=== PATIENT | female | born 1940 | race Caucasian/White ===

== ENCOUNTER 2020-05-06 10:12 | Outpatient (CLI) | payer MEDICARE, SELFPAY ==
--- NOTE | ~2020-05-06 | US_ITS ---
EXAMINATION: US carotid duplex BI DATE: 05/06/2020 11:02 INDICATION: Other specific symptoms/signs involving circulatory respiratory system TECHNIQUE: Grayscale, color Doppler, and pulsed Doppler images of the cervical carotid arteries were obtained. The degree of vessel stenosis is placed in one of the following categories: normal, <50%, 5 0-69%, >=70% but less than near-occlusion, near-occlusion, or total occlusion. Note that percent sten osis relative to normal distal artery lumen diameter is indirectly measured from velocity measurement s as described by Kvng, et al. Radiology 2003; 229:340-346. COMPARISON: None. FINDINGS: RIGHT: The right common carotid artery (CCA) peak systolic velocity (PSV) is 81 cm/s. The right internal car otid artery (ICA) PSV is 63 cm/s. The right ICA end-diastolic velocity (EDV) is 29 cm/s. The right IC A/CCA PSV ratio is 0.8. Grayscale and color Doppler images yield an estimate of <50% diameter reducti on from plaque in the ICA. The external carotid artery (ECA) PSV is 68 cm/s. There is antegrade flow in the right vertebral artery. LEFT: The left CCA PSV is 44 cm/s. The left ICA PSV is 79 cm/s. The left ICA EDV is 34 cm/s. The left ICA/C CA PSV ratio is 1.8. Grayscale and color Doppler images yield an estimate of <50% diameter reduction from plaque in the ICA. The ECA PSV is 46 cm/s. There is antegrade flow in the left vertebral artery. IMPRESSION: 1. <50% stenosis in the right internal carotid artery. 2. <50% stenosis in the left internal carotid artery. Reviewed, dictated and finalized at location B.
== END 2020-05-06 10:13 | disposition home or self-care (01) ==
PROVIDERS: PCP Family Medicine; Referring Provider Internal Medicine Cardiovascular Disease; Visit Provider Family Medicine
DX: R09.89 Other specified symptoms and signs involving the circulatory and respiratory systems (principal); I65.23 Occlusion and stenosis of bilateral carotid arteries
CPT/HCPCS: 93880

== ENCOUNTER → 2020-06-27 10:55 | Outpatient (CLI) | payer MEDICARE, SELFPAY ==
--- NOTE | ~2020-06-27 | US_ITS ---
EXAMINATION: US abdomen limited DATE: 06/27/2020 11:50 INDICATION: Epigastric abdominal pain. Intra-abdominal mass. TECHNIQUE: Multiple grayscale and Doppler ultrasound images of the abdomen were obtained. COMPARISON: None FINDINGS: The visualized portions of the head and body of the pancreas are normal. The liver demonstr ates heterogeneous echogenicity and surface nodularity. The patient's palpable area of concern correl ates with the left hepatic lobe. There are gallstones in the gallbladder, which is normal in size. Ga llbladder wall thickening is noted. The common duct is normal and measures 3 mm. IMPRESSION: 1. Heterogeneous liver, consistent with cirrhosis versus metastatic disease. Abdomen MRI without and with contrast is recommended. 2. Cholelithiasis. Gallbladder wall thickening may be secondary to chronic liver disease, interstitia l edema, or chronic cholecystitis. Reviewed, dictated and finalized at location A. IMPRESSION: 1. Heterogeneous liver, consistent with cirrhosis versus metastatic disease. Ab domen MRI without and with contrast is recommended. 2. Cholelithiasis. Gallbladder wall thickening may be secondary to chronic live r disease, interstitial edema, or chronic cholecystitis.
== END ==
PROVIDERS: PCP Family Medicine; Visit Provider Family Medicine
DX: R19.00 Intra-abdominal and pelvic swelling, mass and lump, unspecified site (principal); K80.20 Calculus of gallbladder without cholecystitis without obstruction; R93.2 Abnormal findings on diagnostic imaging of liver and biliary tract
CPT/HCPCS: 76705

== ENCOUNTER 2020-07-04 09:20 | Outpatient (CLI) | payer MEDICARE, SELFPAY ==
--- NOTE | ~2020-07-04 | MR_ITS ---
EXAMINATION: MR abdomen wo/w con INDICATION: Intra-abdominal and pelvic swelling, abnormal abdominal ultrasound TECHNIQUE: Coronal SSFSE ARC, WATER:coronal LAVA-FLEX, Coronal 2D FIESTA FatSat, Axial SSFSE BH ARC, Axial 3D DualEcho BH, Axial SSFSE-IR, Axial DWI b=500, Axial 2D FIESTA FatSat, pre and dynamic postco ntrast Axial LAVA ARC, postcontrast Coronal In and Opposed phase LAVA FLEX COMPARISON: Ultrasound, 06/27/2020 CONTRAST: Multihance, 12 cc FINDINGS: There are innumerable fluid masses throughout nearly the entire liver. The masses demonstra te varying size and degrees of internal enhancement. No liver segment is spared. Some of the masses d emonstrated targeted toward appearance the enlarged liver displaces the upper abdominal contents to t he left. Stones are present in the nondistended gallbladder. The spleen, pancreas, and adrenal glands are normal. Peripelvic cysts are noted in the kidneys. No definite abdominal lymphadenopathy is iden tified. There are no dilated loops of bowel. There is severe lumbar spondylosis. IMPRESSION: 1. Confluent masses involving all hepatic lobes, consistent with primary liver malignancy (such as ch olangiocarcinoma) or metastatic disease. Given the appearance on comparison ultrasound examination, u ltrasound-guided biopsy is recommended. 2. Cholelithiasis without evidence of cholecystitis. Reviewed, dictated and finalized at location A. [employer] IMPRESSION: 1. Confluent masses involving all hepatic lobes, consistent with primary liver malignancy (such as cholangiocarcinoma) or metastatic disease. Given the appear ance on comparison ultrasound examination, ultrasound-guided biopsy is recommen ded. 2. Cholelithiasis without evidence of cholecystitis.
[2020-07-04 10:03] LABS: Estimated Glomerular Filt Rate > 60
== END 2020-07-04 09:21 ==
PROVIDERS: PCP Family Medicine; Visit Provider Family Medicine
DX: K76.89 Other specified diseases of liver (principal); K80.20 Calculus of gallbladder without cholecystitis without obstruction
CPT/HCPCS: 74183; A9577

== ENCOUNTER 2020-07-09 01:45 | Outpatient (CLI) | payer MEDICARE, SELFPAY ==
[2020-07-09 18:04] LABS: SARS-CoV-2 RNA PCR Negative
== END 2020-07-09 01:46 | disposition home or self-care (01) ==
LOC: ANHCOVIDDT 01:45
PROVIDERS: PCP Family Medicine; Visit Provider Family Medicine
DX: Z01.812 Encounter for preprocedural laboratory examination (principal); Z20.828 Contact with and (suspected) exposure to other viral communicable diseases
CPT/HCPCS: 87635; C9803; U0003

== ENCOUNTER 2020-07-13 07:55 | Outpatient (CLI) | payer MEDICARE, SELFPAY ==
[2020-07-11 14:14] VITALS: BMI 24.0
[2020-07-13] VITALS (11 sets, daily range): BP systolic 117–142; BP diastolic 66–82; PULSE 97–109; RESP 17–24; O2SAT 86–96
--- NOTE | ~2020-07-13 | US_ITS ---
EXAMINATION: US biopsy liver DATE: 07/13/2020 10:30 INDICATION: Multiple hepatic masses seen on outside MRI. TECHNIQUE: The procedure including the risks and benefits was discussed with the patient. Risks discu ssed included bleeding and infection. The patient understood the risks and agreed to proceed. The sk in overlying the medial segment of the left hepatic lobe was prepped and draped in usual sterile fash ion. Anesthetic was administered with 1% lidocaine subcutaneously. An 18 gauge core biopsy needle w as advanced under continuous ultrasound observation to the large confluent mass of interest. 3 core biopsy specimens were obtained. The needle was removed and the entry site was cleaned and dressed. Post procedure ultrasound demonstrated no hemorrhage. FINDINGS: Ultrasound images demonstrate patchy needle was advanced into the large heterogeneously hyp oechoic region in the medial segment of the left hepatic lobe corresponding to the location of the la rge confluent mass seen on prior MRI. IMPRESSION: 1. Successful Ultrasound-guided biopsy of a large confluent hepatic mass. Reviewed, dictated and finalized at location A. PLECHASE JOCKEY
[2020-07-13 08:29] LABS: Hematocrit 41.9 % (37.0-47.0); Hemoglobin 13.3 g/dL (12.0-15.0); Mean Corpuscular HGB Conc 31.7 g/dl (32-36); Mean Corpuscular Hemoglobin 25.8 pg (26-34); Mean Corpuscular Volume 81.4 fl (80-100); Mean Platelet Volume 10.1 fl (7.4-10.4); Platelet Count Result 360 k/mm3 (150-375); Red Blood Count 5.15 M/mm3 (4.2-5.4); Red Cell Distribution Width 14.6 % (11.5-14.5); White Blood Count 20.3 K/mm3 (4.5-10.0)
[2020-07-13 08:39] LABS: INR 1.1; Prothrombin Time 15.1 Seconds (11.1-14.7)
== END 2020-07-13 14:15 | disposition home or self-care (01) ==
PROVIDERS: Radiology Diagnostic Radiology; PCP Family Medicine; Visit Provider Family Medicine
DX: K76.89 Other specified diseases of liver (principal); C78.7 Secondary malignant neoplasm of liver and intrahepatic bile duct
CPT/HCPCS: 36415; 47000; 76942; 85027; 85610; 88307; 88342

== ENCOUNTER 2020-07-26 10:32 | Observation (INO) | payer MEDICARE, SELFPAY ==
[2020-07-26] VITALS (13 sets, daily range): BP systolic 108–120; BP diastolic 56–77; PULSE 77–110; RESP 13–25; TEMP 36.1–36.6; O2SAT 90–95; BMI 25.0
--- NOTE | ~2020-07-26 | XR_ITS ---
XR chest 2V 07/26/2020 11:42 Indication: Weakness and dyspnea Procedure: AP and lateral views of the chest Comparison: No prior studies for comparison. Findings: Heart size normal. Elevated right diaphragm. Right basilar infiltrates may represent atelec tasis or developing pneumonia. No pleural effusion or pneumothorax. No acute osseous abnormality. Impression: 1: Right basilar infiltrates may represent atelectasis or developing pneumonia. Reviewed, dictated and finalized at location A. SERVICE CLERK Impression: 1: Right basilar infiltrates may represent atelectasis or developing pneumonia.
--- NOTE | 2020-07-26 10:52 | ECG_ITS ---
Measurements Intervals [place] Rate: 114 P: 25 NC: 166 QRS: -38 QRSD: 82 T: 14 QT: 319 QTc: 441 Interpretive Statements SINUS TACHYCARDIA LOW QRS VOLTAGE IN PRECORDIAL LEADS ANTEROSEPTAL INFARCT, AGE INDETERMINATE INFERIOR INFARCT, AGE INDETERMINATE BASELINE ARTIFACT- I, II, AVR ABNORMAL ECG Electronically Signed On 07-26-2020 11:13:20 MUSICAL INSTRUMENT MECHANIC by Dave Lynn D.O.
[2020-07-26 11:22] LABS: Basophils Absolute Auto 0.1 K/mm3 (0.0-0.1); Basophils Percent Auto 0.5 % (0.2-1.2); Eosinophils Absolute Auto 0.1 K/mm3 (0-0.3); Eosinophils Percent Auto 0.3 % (0-4.4); Hemoglobin 13.6 g/dL (12.0-15.0); Immature Granulocyte Absolute 0.19 K/mm3 (0.00-0.031); Immature Granulocyte Percent A 0.9 % (0-0.5); Lymphocytes Absolute Auto 2.13 K/mm3 (0.9-3.2); Lymphocytes Percent Auto 10.4 % (18.3-44.2); Mean Corpuscular HGB Conc 33.2 g/dl (32-36); Mean Corpuscular Hemoglobin 25.7 pg (26-34); Mean Corpuscular Volume 77.4 fl (80-100); Mean Platelet Volume 9.3 fl (7.4-10.4); Monocytes Absolute Auto 1.4 K/mm3 (0.1-0.6); Monocytes Percent Auto 6.8 % (2.6-8.5); Neutrophils Absolute Auto 16.6 K/mm3 (1.3-6.7); Neutrophils Percent Auto 81.1 % (45.5-73.1); Platelet Count Result 330 k/mm3 (150-375); Red Cell Distribution Width 15.4 % (11.5-14.5); White Blood Count 20.5 K/mm3 (4.5-10.0)
[2020-07-26] MEDS: SODIUM CHLORIDE 0.9% IV 1,000 ML 150 ML IV CONT (11:31)
--- NOTE | 2020-07-26 11:32 | PC.NURSE ---
Per [facility], patient is to recieve 400ml bolus before 150ml/hr infusion
[2020-07-26 11:42] LABS: Alanine Aminotransferase 56 U/L (4-35); Albumin Level 3.4 g/dL (3.5-5.1); Alkaline Phosphatase 659 U/L (38-126); Anion Gap 12 mmol/L (8-16); Aspartate Amino Transferase 175 U/L (14-36); Bilirubin,Total 1.4 mg/dL (0.2-1.3); Blood Urea Nitrogen 21 mg/dL (7-17); Calcium 9.3 mg/dL (8.4-10.2); Carbon Dioxide 23 mmol/L (22-30); Chloride 96 mmol/L (98-107); Estimated CRCL calculation 42 ml/min; Estimated Glomerular Filt Rate > 60; Glucose 105 mg/dL (65-105); Potassium 4.6 mmol/L (3.4-5.0); Sodium 131 mmol/L (137-145)
--- NOTE | 2020-07-26 13:58 | ED.GENADULT ---
HPI - General Adult General Chief complaint: Weakness Stated complaint: ?liver mass, unable to eat Time Seen by Provider: 07/26/20 11:10 Source: patient Mode of arrival: ambulatory Limitations: no limitations History of Present Illness HPI narrative: 79-year-old with a history of liver mass presented to the ER this morning with complaints of marked weakness for past few days. She states that she is unable to eat or drink because of pain in the upper abdomen. She states that she was scheduled to get a PET scan this morning, was unable to get it as orders were not sent. Pt states she is extremely weak, unable to walk, Denies any fever or chills Severity: moderate Exacerbating factors: none Associated symptoms: denies other symptoms Related Data Home Medications Medication Instructions Recorded Confirmed lisinopril 5 mg PO DAILY 07/11/20 07/11/20 raloxifene 60 mg PO DAILY 07/11/20 07/11/20 simvastatin 20 mg PO DAILY 07/11/20 07/11/20 Allergies Allergy/AdvReac Type Severity Reaction Status Date / Time No Known Allergies Allergy Verified 07/26/20 10:54 Review of Systems Review of Systems: All systems reviewed & are unremarkable except as noted in HPI and below Constitutional: Constitutional: Reports as per HPI Eyes: Eyes: Reports as per HPI ENT: Reports system reviewed and no additional complaints, except as documented Cardiovascular: Cardiovascular: Reports no additional cardiovascular complaints Respiratory: Respiratory: Reports no additional respiratory complaints Gastrointestinal: Gastrointestinal: Reports as per HPI Musculoskeletal: Musculoskeletal: Reports no additional musculoskeletal complaints Psychiatric: Psychiatric: Reports no additional psychiatric complaints [facility] Family History Family History Other Family history of arthritis Family history of malignant neoplasm Social History Social History Smoking status: Never smoker Alcohol intake: never Gender identity (if verbalized by the patient): Female Exam Narrative: Exam Narrative: GENERAL: , well-nourished, and in no acute distress. HEAD: Normocephalic, atraumatic. EYES: PERRLA and EOMI. . NECK: Supple. CHEST: Clear to auscultation. No respiratory distress. HEART: Regular rate and rhythm. No murmur heard. Normal peripheral pulses. ABDOMEN: Soft, difuse tenderness , nondistended, normal active bowel sounds. EXTREMITIES: Normal range of motion. No edema. SKIN: Warm, dry, no rash. NEURO: No focal deficits. Alert and oriented x3. PSYCH: Normal mood and affect. Course Course Emergency Course: Inform patient about her lab work. I discussed with Dr. Willis about her lab work and x-ray findings. He prefers the patient to be admitted and have Dr. Ramirez consult him on hte floor. Pt does not feel comfortable going home , I discussed with Dr. Ramirez will see the pt in consult and Dr. Bowers agreed to admit. Vital Signs Vital signs: Vital Signs Pulse Rate 110 H 07/26/20 10:48 Respiratory Rate 13 07/26/20 10:48 Blood Pressure 117/77 07/26/20 10:48 Pulse Oximetry 94 07/26/20 10:48 Temperature 36.6 C 07/26/20 10:52 Pulse Rate 106 H 07/26/20 10:53 Respiratory Rate 13 07/26/20 10:48 Blood Pressure 117/77 07/26/20 10:48 Pulse Oximetry 94 07/26/20 10:48 Medical Decision Making Vital Signs Vital Signs: Vital Signs Pulse Rate 110 H 07/26/20 10:48 Respiratory Rate 13 07/26/20 10:48 Blood Pressure 117/77 07/26/20 10:48 Pulse Oximetry 94 07/26/20 10:48 Temperature 36.6 C 07/26/20 10:52 Pulse Rate 106 H 07/26/20 10:53 Respiratory Rate 13 07/26/20 10:48 Blood Pressure 117/77 07/26/20 10:48 Pulse Oximetry 94 07/26/20 10:48 Lab Data Result diagrams: 07/26/20 11:16 07/26/20 11:16 Labs: Lab Results 07/26/20 07/26/20 Range/Units
[2020-07-26 14:40] LABS: Add Urine Microscopic? YES; Appearance Urine Clear (Clear); Bilirubin Urine 1+ (Negative); Blood Urine Negative (Negative); Color Urine Amber (Yellow); Glucose Urine UA Negative (Negative); Ketones Urine Trace mg/dL (Negative); Leukocyte Esterase Ur Negative LEU/UL (Negative); Mucus Urine Rare /lpf; Nitrate Urine Negative (Negative); Protein Urine 1+ mg/dL (Negative); RBC Urine 0-2 /hpf (0-2); Specific Grav Ur 1.029 (1.001-1.035); WBC Urine 0-3 /hpf
[2020-07-26] MEDS: SODIUM CHLORIDE 0.9% IV 1,000 ML 75 ML IV CONT (15:06)
--- NOTE | 2020-07-26 15:17 | ADMGEN ---
This patient, Stephanie Wilson, was admitted to Medical Room 254-01. Patient/family oriented to hospital policies and general routines including ID bracelet, bed and alarms, visiting hours, pain management, procedures, bathroom and other care routines, personal items, smoking policy, room service/diet, and visiting hours. Information on how to activate the Rapid Response Team has been discussed. Patient/Family are encouraged to report perceived risks to care and to ask questions if they do not understand what they are told or what they should do.
[2020-07-26] MEDS: HYDROmorphone HCL INJ (*CRX) 1 MG/ML SYR 0.5 MG IV PUSH ×2 (15:24→19:46)
[2020-07-26] MEDS: ONDANSETRON INJ 4 MG/2 ML VIAL IV PUSH ×2 (15:24→19:42)
--- NOTE | 2020-07-26 20:15 | PM.IMHP ---
H&P: HPI History of Present Illness Date/Time: 07/26/20 20:15 Chief complaint: Metastatic lung ca Narrative: This is a pleasant 79-year-old female who is known to have a history of hypertension, hyperlipidemia, and recently diagnosed liver mass who presented to the hospital today to have a PET scan done. The patient complains of having increased weakness over the past week as well as decreased p.o. intake of food and fluids. She has not noticed any significant weight loss. She tells me that about 1 month ago she noticed that she had a lump that she could feel over her liver. She had an ultrasound done which demonstrated that she had a liver mass at that time. She was told that it appears that she may also have involvement of her lungs now. The patient is undergoing evaluation with Dr. Ramirez who has asked that we admit the patient to the hospital so she can undergo PET scan in the morning. She denies any history of tobacco use although she has exposure to secondhand smoke from her .Tonight on my encounter with the patient she is complaining of nausea and mild right upper quadrant tenderness which she states has become chronic now. She denies any fevers, chills, cough, shortness of breath, chest pain, palpitations, headache, dysuria, hematuria, diarrhea, rectal bleeding, lower extremity swelling, or rashes. the patient verbalizes to me that she is very frustrated and depressed at this time. No other complaints tonight. Review of Systems Review of Systems: All systems reviewed & are unremarkable except as noted in HPI and below PMFSH Past Medical History Medical History (Updated 07/26/20 @ 20:30 by Shahzad Castillo MD) Essential hypertension Hyperlipidemia Surgical History Surgical History (Updated 07/26/20 @ 20:23 by Shahzad Castillo MD) H/O oophorectomy History of lumpectomy of right breast Family History Family History (Updated 07/26/20 @ 15:35 by Olivia Najera RN) Father Acute eosinophilic leukemia Social History Social History Smoking status: Former smoker Additional smoking assessment comments: pt was a social smoker Alcohol intake: never Substance use: never Substance use type: does not use Gender identity (if verbalized by the patient): Female Spiritual care concerns: No Meds Home Medications and Allergies Home Medications Medication Instructions Recorded Confirmed Type lisinopril 5 mg PO DAILY 07/11/20 07/26/20 History simvastatin 20 mg PO HS 07/11/20 07/26/20 History hydrocodone-acetaminophen 1 tablet PO Q6H PRN 07/26/20 07/26/20 History ondansetron 4 mg PO Q6H PRN 07/26/20 07/26/20 History Allergies Allergy/AdvReac Type Severity Reaction Status Date / Time No Known Allergies Allergy Verified 07/26/20 15:18 Vital Signs Vital Signs - 24 hr 07/26/20 10:48 07/26/20 10:52 07/26/20 10:53 Temperature 36.6 C Pulse Rate 110 H 106 H Respiratory Rate 13 Blood Pressure 117/77 Pulse Oximetry 94 07/26/20 11:46 07/26/20 12:01 07/26/20 12:31 Temperature Pulse Rate 105 H 104 H 107 H Respiratory Rate 25 H 21 H 19 Blood Pressure 114/76 117/65 120/66 Pulse Oximetry 92 93 92 07/26/20 12:46 07/26/20 13:31 07/26/20 13:46 Temperature Pulse Rate 105 H 106 H 106 H Respiratory Rate 21 H 20 20 Blood Pressure 116/71 115/69 118/66 Pulse Oximetry 90 07/26/20 14:17 07/26/20 14:48 07/26/20 15:16 Temperature 36.6 C Pulse Rate 77 106 H 108 H Respiratory Rate 19 19 16 Blood Pressure 108/56 L 120/70 115/60 Pulse Oximetry 90 93 95 Exam Const: General: cooperative, alert, awake and ill appearing chronically Nutritional Appearance: well nourished Orientation/consciousness: patient oriented x3 HENMT: Head: normal to inspection General nose exam: Normal external nose present Face and sinus: normal facial exam Mouth: Yes Normal oral and palatal mucosa present and Y
[2020-07-27] MEDS: HYDROmorphone HCL INJ (*CRX) 1 MG/ML SYR 0.5 MG IV PUSH ×2 (02:11→13:18)
[2020-07-27] MEDS: ONDANSETRON INJ 4 MG/2 ML VIAL IV PUSH ×2 (02:12→13:15)
[2020-07-27] MEDS: SODIUM CHLORIDE 0.9% IV 1,000 ML 75 ML IV CONT ×2 (04:58→19:47)
[2020-07-27 05:38] VITALS: BP 107/62; PULSE 98; RESP 16; TEMP 36.2; O2SAT 90
[2020-07-27 05:38] LABS: Basophils Absolute Auto 0.1 K/mm3 (0.0-0.1); Basophils Percent Auto 0.4 % (0.2-1.2); Eosinophils Absolute Auto 0.1 K/mm3 (0-0.3); Eosinophils Percent Auto 0.4 % (0-4.4); Hematocrit 36.9 % (37.0-47.0); Hemoglobin 12.2 g/dL (12.0-15.0); Immature Granulocyte Absolute 0.16 K/mm3 (0.00-0.031); Immature Granulocyte Percent A 0.9 % (0-0.5); Lymphocytes Absolute Auto 2.99 K/mm3 (0.9-3.2); Lymphocytes Percent Auto 16.6 % (18.3-44.2); Mean Corpuscular HGB Conc 33.1 g/dl (32-36); Mean Corpuscular Hemoglobin 25.2 pg (26-34); Mean Corpuscular Volume 76.1 fl (80-100); Mean Platelet Volume 9.4 fl (7.4-10.4); Monocytes Absolute Auto 1.4 K/mm3 (0.1-0.6); Neutrophils Absolute Auto 13.3 K/mm3 (1.3-6.7); Neutrophils Percent Auto 73.7 % (45.5-73.1); Platelet Count Result 341 k/mm3 (150-375); Red Blood Count 4.85 M/mm3 (4.2-5.4); Red Cell Distribution Width 15.6 % (11.5-14.5)
[2020-07-27 06:00] LABS: Alanine Aminotransferase 50 U/L (4-35); Albumin Level 3.2 g/dL (3.5-5.1); Alkaline Phosphatase 561 U/L (38-126); Anion Gap 11 mmol/L (8-16); Aspartate Amino Transferase 160 U/L (14-36); Bilirubin,Total 1.4 mg/dL (0.2-1.3); Blood Urea Nitrogen 22 mg/dL (7-17); Calcium 8.6 mg/dL (8.4-10.2); Carbon Dioxide 21 mmol/L (22-30); Chloride 101 mmol/L (98-107); Estimated CRCL calculation 43 ml/min; Estimated Glomerular Filt Rate > 60; Glucose 86 mg/dL (65-105); Potassium 4.7 mmol/L (3.4-5.0); Sodium 133 mmol/L (137-145)
[2020-07-27] MEDS: lisinopriL 5 MG TABLET PO (09:30)
--- NOTE | 2020-07-27 10:22 | PCPTNOTE ---
Attempted PT evaluation. Pt just returned to bed from shower and requesting therapy after lunch secondary to fatigue. Will attempt again later. Rosa Raymundo, СЕРГЕЙT
[2020-07-27 12:24] VITALS: BMI 25.0
--- NOTE | 2020-07-27 13:43 | PM.IMPN ---
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 She is having RUQ pain felt to be secondary to mass. Dr. Ramirez has been consulted and recommendations are appreciated. Analgesics as needed for pain. Antiemetics. She will need a PET scan as an outpatient. Will provide order. (2) Weakness: Code(s): R53.1 - Weakness Status: Acute Assessment and Plan: [place] to be multifactorial related to malignancy and possible metastatic disease, dehydration, and deconditioning. Appreciate PT and OT evaluation. Check TSH, B12, and folate (3) Dehydration: Code(s): E86.0 - Dehydration Status: Acute Assessment and Plan: Patient reports poor oral intake. Noted to be dry on exam upon presentation. She appears adequately rehydrated at this time. Continue gentle IV fluids as oral intake is still decreased Encourage PO intake of food and liquids. Dietary supplements (4) Leukocytosis: Qualifiers: Leukocytosis type: unspecified Qualified Code(s): D72.829 - Elevated white blood cell count, unspecified Code(s): D72.829 - Elevated white blood cell count, unspecified Status: Chronic Assessment and Plan: Ongoing leukocytosis is likely secondary to primary malignancy. No evidence of acute infection. Patient is afebrile. Monitor CBCd (5) Transaminitis: Code(s): R74.01 - Elevation of levels of liver transaminase levels Status: Chronic Assessment and Plan: Cholestatic transaminitis appears to be secondary to liver cancer. Monitor LFTs closely (6) Hyperlipidemia: Qualifiers: Hyperlipidemia type: unspecified Qualified Code(s): E78.5 - Hyperlipidemia, unspecified Code(s): E78.5 - Hyperlipidemia, unspecified Status: Chronic Assessment and Plan: We will hold simvastatin secondary to elevated liver enzymes. (7) Essential hypertension: Code(s): I10 - Essential (primary) hypertension Status: Chronic Assessment and Plan: Blood pressure evaluated today and is low-normal, last reading was 107/62. Continue lisinopril. Hold if BP becomes low. Subjective Date/time seen: 07/27/20 13:43 Interval history: Date of service: 07/27/2020 Stephanie Wilson is a 79 year old female with a history of HTN and known liver mass being worked up by oncology who is seen in follow up for weakness and dehydration. She reports she is not doing well today. She complains of RUQ pain. She has poor appetite and has not been tolerating much oral intake. She denies nausea, vomiting, abdominal pain, fever, chills, dizziness, or lightheadedness. She feels weak. She got up for a shower today and required assistance. After that, she was too worn out to work with therapy. She does not feel that she can return home at this time as she is feeling so poorly. Review of Systems Review of Systems: All systems reviewed & are unremarkable except as noted in HPI and below Exam Narrative: Exam Narrative: Ms. Wilson is a well-nourished, well-appearing 79-year-old female who is lying supine in bed. She appears comfortable and is in NARD. HR 98, BP 107/62, RR 16, T 97.1?, 92% room air Neuro: awake, alert and oriented x4, speech clear, no focal neuro deficits noted HEENMT: normocephalic, atraumatic, EOMI, sclerae anicteric, moist oral mucosa, tongue midline, nares patent Neck: supple, no lymphadenopathy Respiratory: clear to auscultation bilaterally, nonlabored breathing Cardio: regular rate, regular rhythm with S1-S2 Abdomen: nondistended, normoactive bowel sounds, soft
[2020-07-27 14:00] VITALS: BP 82/50; PULSE 102; RESP 12; TEMP 36.8; O2SAT 92
--- NOTE | 2020-07-27 14:27 | PCOTNOTE ---
OT evaluation attempted, however, patient nauseated and tired and requesting therapy come back another time. Will attempt OT evaluation at later time.
[2020-07-27 15:10] VITALS: BP 94/56; PULSE 94; RESP 12; TEMP 36.3; O2SAT 93
--- NOTE | 2020-07-27 17:36 | PDONCCN ---
[facility] - Date of Consult Date/Time: 07/27/20 17:36 Requesting Physician: Oly Trevino PA-C Primary Care Provider: Dileep Willis MD - Consult Narrative Reason for consult: Metastatic adenocarcinoma Narrative: Stephanie Wilson is a 79 year old female This is a pleasant 79-year-old female who well abdominal MRI done on July 04, 2020 due to abdominal pain and distention that showed confluent of masses involving all a hepatic lobes and ultrasound-guided biopsy was recommended. Patient had ultrasound-guided biopsy of the large liver mass done on July 13 that came back positive for adenocarcinoma likely pulmonary origin. Patient has a history of right-sided breast cancer diagnosed in 1991 status post lumpectomy and radiation therapy. She denies any history of smoking but had secondhand smoking exposure with the for almost 50 years duration. She now came into the hospital with generalized tiredness and fatigue and right upper quadrant abdominal pain. She has been eating poorly and has been losing weight as well. Denies any bone pain and headache. She was started on Dilaudid in the hospital with improvement in abdominal discomfort. She was supposed to have a PET scan done as an outpatient but got into the hospital. She also had appointment with me early this week but unfortunately admitted to the hospital for generalized tiredness and fatigue and failure to thrive. Review of Systems - Review of Systems All systems reviewed & are unremarkable except as noted in [facility] and [facility] Medical History: Medical History (Last Updated 07/26/20 @ 20:23 by Shahzad Castillo MD) Essential hypertension Hyperlipidemia Surgical History: Surgical History (Last Updated 07/26/20 @ 20:23 by Shahzad Castillo MD) H/O oophorectomy History of lumpectomy of right breast Family History: Family History (Last Updated 07/26/20 @ 15:35 by Olivia Najera RN) Father Acute eosinophilic leukemia - Social History Social History: Social History (Last Reviewed 07/26/20 @ 14:02 by William Garcia MD) Gender Identity: Gender identity (if verbalized by the patient): Female Alcohol Use: Alcohol intake: never Substance Use: Substance use: never Substance use type: does not use Others: Spiritual care concerns: No Smoking Status: Smoking status: Former smoker Comments: Additional smoking assessment comments: pt was a social smoker Meds Home Medications Medication Instructions Recorded Confirmed Type lisinopril 5 mg PO DAILY 07/11/20 07/26/20 History simvastatin 20 mg PO HS 07/11/20 07/26/20 History hydrocodone-acetaminophen 1 tablet PO Q6H PRN 07/26/20 07/26/20 History ondansetron 4 mg PO Q6H PRN 07/26/20 07/26/20 History Allergies Allergy/AdvReac Type Severity Reaction Status Date / Time No Known Allergies Allergy Verified 07/26/20 15:18 Results - Labs CBC & Chem 7: 07/27/20 05:29 07/27/20 05:29 Labs: Short CBC 07/27/20 Range/Units 05:29 WBC 18.0 H (4.5-10.0) K/mm3 Hgb 12.2 (12.0-15.0) g/dL Hct 36.9 L (37.0-47.0) % Plt Count 341 (150-375) k/mm3 BMP 07/27/20 05:29 Sodium 133 L Potassium 4.7 Chloride 101 Carbon Dioxide 21 L BUN 22 H Creatinine 0.80 Glucose 86 Calcium 8.6 Liver Function 07/27/20 Range/Units 05:29 Total Bilirubin 1.4 H (0.2-1.3) mg/dL AST 160 H (14-36) U/L ALT 50 H (4-35) U/L Alkaline Phosphatase 561 H (38-126) U/L Albumin 3.2 L (3.5-5.1) g/dL Assessment and Plan - Additional Plan Metastatic adenocarcinoma status post ultrasound-guided liver biopsy done on July 13, 2020. Patient denies any history of smoking but had secondhand smoking exposure from the . She also has a history of right-sided breast cancer status post lumpectomy in 1991. I have reviewed the pathology report that showed adenocarcinoma likely arising from pulmo
[2020-07-27] MEDS: HYDROcodone/acetaminophen (*CRX) 5-325 MG TABLET 1 TAB PO (19:47)
[2020-07-27 20:00] VITALS: BP 106/61; PULSE 95; RESP 22; TEMP 36.8; O2SAT 96
[2020-07-28] MEDS: HYDROcodone/acetaminophen (*CRX) 5-325 MG TABLET 1 TAB PO ×3 (01:40→12:20)
[2020-07-28 04:00] VITALS: BP 100/56; PULSE 90; RESP 20; TEMP 36.5; O2SAT 93
[2020-07-28 05:54] LABS: Hematocrit 36.8 % (37.0-47.0); Mean Corpuscular HGB Conc 32.6 g/dl (32-36); Mean Corpuscular Hemoglobin 25.5 pg (26-34); Mean Corpuscular Volume 78.3 fl (80-100); Mean Platelet Volume 9.9 fl (7.4-10.4); Platelet Count Result 297 k/mm3 (150-375); Red Cell Distribution Width 15.5 % (11.5-14.5)
[2020-07-28 06:09] LABS: Anion Gap 7 mmol/L (8-16); Blood Urea Nitrogen 26 mg/dL (7-17); Calcium 8.7 mg/dL (8.4-10.2); Carbon Dioxide 25 mmol/L (22-30); Chloride 100 mmol/L (98-107); Estimated CRCL calculation 32 ml/min; Estimated Glomerular Filt Rate 48; Glucose 96 mg/dL (65-105); Potassium 4.4 mmol/L (3.4-5.0); Sodium 132 mmol/L (137-145)
[2020-07-28 07:12] LABS: Folic Acid 6.1 ng/mL (2.76->20); Vitamin B12 > 1000.0 pg/mL (239-931)
[2020-07-28 07:46] LABS: Alanine Aminotransferase 52 U/L (4-35); Alkaline Phosphatase 565 U/L (38-126); Aspartate Amino Transferase 181 U/L (14-36); Bilirubin,Total 1.6 mg/dL (0.2-1.3)
[2020-07-28 07:55] LABS: Free T4 Free Thyroxine Reflex 1.69 ng/dL (0.78-2.19)
[2020-07-28] MEDS: lisinopriL 5 MG TABLET PO (08:46)
--- NOTE | 2020-07-28 10:00 | PM.IMPN ---
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 She is having RUQ pain felt to be secondary to mass. Dr. Ramirez has been consulted and recommendations are appreciated. Analgesics as needed for pain. Antiemetics. She will need a PET scan as an outpatient. Will provide order. She will follow up with Dr. Ramirez as an outpatient for possible immunotherapy. Patient declines chemotherapy. Hopeful discharge tomorrow if continued improvement of pain and weakness. (2) Weakness: Code(s): R53.1 - Weakness Status: Acute Assessment and Plan: [place] to be multifactorial related to malignancy and metastatic disease, dehydration, and deconditioning. B12 and folate wnl. Appreciate PT and OT evaluation. Continue IV fluids and PO intake encouragement. Fall precautions (3) Dehydration: Code(s): E86.0 - Dehydration Status: Acute Assessment and Plan: Patient reports poor oral intake. Noted to be dry on exam upon presentation. She appears adequately rehydrated at this time. Continue gentle IV fluids as oral intake is still decreased, but overall improving. Encourage PO intake of food and liquids. Dietary supplements (4) Leukocytosis: Qualifiers: Leukocytosis type: unspecified Qualified Code(s): D72.829 - Elevated white blood cell count, unspecified Code(s): D72.829 - Elevated white blood cell count, unspecified Status: Chronic Assessment and Plan: Ongoing leukocytosis is likely secondary to primary malignancy. No evidence of acute infection. CXR with possible infiltrates although patient has no respiratory symptoms. UA clear. Patient is afebrile. Leukocytosis improving. Monitor CBCd (5) Transaminitis: Code(s): R74.01 - Elevation of levels of liver transaminase levels Status: Chronic Assessment and Plan: Cholestatic transaminitis appears to be secondary to liver cancer. Monitor LFTs closely (6) Hyperlipidemia: Qualifiers: Hyperlipidemia type: unspecified Qualified Code(s): E78.5 - Hyperlipidemia, unspecified Code(s): E78.5 - Hyperlipidemia, unspecified Status: Chronic Assessment and Plan: Simvastatin on hold secondary to elevated liver enzymes. (7) Essential hypertension: Code(s): I10 - Essential (primary) hypertension Status: Chronic Assessment and Plan: Blood pressure evaluated today and is low-normal, last reading was 100/56. Continue low dose lisinopril. Hold if BP becomes low. (8) Subclinical hypothyroidism: Code(s): E03.9 - Hypothyroidism, unspecified Status: Acute Assessment and Plan: TSH slightly elevated at 6. T4 wnl. T3 is pending. Possibly contributing to weakness but dehydration and malignancy seems more likely Repeat reflex TSH in 6 weeks. Subjective Date/time seen: 07/28/20 10:00 Interval history: Date of service: 07/28/2020 Stephanie Wilson is a 79 year old female with a history of HTN and known liver mass being worked up by oncology who is seen in follow up for weakness and dehydration. She reports that she is doing the same today. She continues to endorse significant weakness. She is not eating much and has very poor appetite. She feels that she is not steady to ambulate without assistance. She does not feel that she can safely return home at this time. She is endorsing nausea today but no vomiting. She continues to endorse right upper quadrant pain that is worse with inspiration. She also describes feeling as though fo
[2020-07-28 10:13] LABS: Total Triiodothyronine (T3) 0.58 NG/ML (0.97-1.69)
[2020-07-28] MEDS: SODIUM CHLORIDE 0.9% IV 1,000 ML 75 ML IV CONT (12:22)
[2020-07-28 14:00] VITALS: BP 104/62; PULSE 95; RESP 16; TEMP 36.7; O2SAT 95
[2020-07-28] MEDS: ONDANSETRON INJ 4 MG/2 ML VIAL IV PUSH ×2 (14:03→22:25)
[2020-07-28] MEDS: CALCIUM CARBONATE (TUMS) 500 MG (200 MG ELEMENTAL) PO ×2 (16:26→22:25)
[2020-07-28 22:00] VITALS: BP 100/53; PULSE 100; RESP 16; TEMP 37.1; O2SAT 94
[2020-07-28 23:56] VITALS: BP 105/55; PULSE 98; RESP 16; TEMP 36.7; O2SAT 93
[2020-07-29] MEDS: SODIUM CHLORIDE 0.9% IV 1,000 ML 75 ML IV CONT (02:37)
[2020-07-29 04:04] VITALS: BP 108/62; PULSE 102; RESP 16; TEMP 36.7; O2SAT 94
[2020-07-29] MEDS: KETOROLAC 30 MG/ML VIAL (*BKC) IV PUSH (04:09)
[2020-07-29 05:47] LABS: Hematocrit 36.5 % (37.0-47.0); Hemoglobin 11.9 g/dL (12.0-15.0); Mean Corpuscular HGB Conc 32.6 g/dl (32-36); Mean Corpuscular Hemoglobin 25.4 pg (26-34); Mean Platelet Volume 9.7 fl (7.4-10.4); Platelet Count Result 271 k/mm3 (150-375); Red Blood Count 4.68 M/mm3 (4.2-5.4); Red Cell Distribution Width 15.9 % (11.5-14.5); White Blood Count 16.6 K/mm3 (4.5-10.0)
[2020-07-29 05:53] LABS: Anion Gap 7 mmol/L (8-16); Blood Urea Nitrogen 22 mg/dL (7-17); Calcium 8.7 mg/dL (8.4-10.2); Carbon Dioxide 22 mmol/L (22-30); Chloride 104 mmol/L (98-107); Estimated CRCL calculation 43 ml/min; Estimated Glomerular Filt Rate > 60; Glucose 92 mg/dL (65-105); Potassium 4.5 mmol/L (3.4-5.0); Sodium 133 mmol/L (137-145)
[2020-07-29 08:36] VITALS: BP 107/61
[2020-07-29] MEDS: HYDROcodone/acetaminophen (*CRX) 5-325 MG TABLET 1 TAB PO (08:46)
[2020-07-29] MEDS: CALCIUM CARBONATE (TUMS) 500 MG (200 MG ELEMENTAL) PO (11:46)
--- NOTE | 2020-07-30 09:42 | PM.DS ---
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 She was experiencing RUQ pain felt to be secondary to mass. She was seen in consultation by Dr. Ramirez and will follow Up with him as an outpatient for possible immunotherapy. She has declined chemotherapy. She will need a PET scan as an outpatient and she was provided with this order. Pain was controlled with PO [place] and she was provided with a short course of pain medication upon discharge at the request of Dr. Ramirez. (2) Weakness: Code(s): R53.1 - Weakness Status: Acute Assessment and Plan: [place] to be multifactorial related to malignancy and metastatic disease, dehydration, and deconditioning. B12 and folate wnl. she was seen by PT and OT and no further needs for ongoing therapy were identified. Fall precautions discussed. (3) Dehydration: Code(s): E86.0 - Dehydration Status: Acute Assessment and Plan: Patient reported poor oral intake secondary to nausea. she was rehydrated with IV fluids and volume status improved. Nausea controlled with Zofran which she can continue as an outpatient as needed. Dietary supplements. (4) Leukocytosis: Qualifiers: Leukocytosis type: unspecified Qualified Code(s): D72.829 - Elevated white blood cell count, unspecified Code(s): D72.829 - Elevated white blood cell count, unspecified Status: Chronic Assessment and Plan: Ongoing leukocytosis is likely secondary to primary malignancy. No evidence of acute infection. CXR with possible infiltrates although patient has no respiratory symptoms. UA clear. Patient is afebrile. Monitor CBC as an outpatient. (5) Transaminitis: Code(s): R74.01 - Elevation of levels of liver transaminase levels Status: Chronic Assessment and Plan: Cholestatic transaminitis appears to be secondary to liver cancer. Follow LFTs as an outpatient. Repeat CMP in 1 week. (6) Hyperlipidemia: Qualifiers: Hyperlipidemia type: unspecified Qualified Code(s): E78.5 - Hyperlipidemia, unspecified Code(s): E78.5 - Hyperlipidemia, unspecified Status: Chronic Assessment and Plan: Simvastatin on hold secondary to elevated liver enzymes. Follow up with PCP to determine if/when to resume. (7) Essential hypertension: Code(s): I10 - Essential (primary) hypertension Status: Chronic Assessment and Plan: Blood pressure evaluated daily and was low-normal with few episodes of hypotension. Her lisinopril was held. Recommended monitoring BP at home and recording for PCP review. Hold until follow up. (8) Subclinical hypothyroidism: Code(s): E03.9 - Hypothyroidism, unspecified Status: Acute Assessment and Plan: TSH slightly elevated at 6. T4 wnl. T3 slightly decreased. Repeat reflex TSH in 6 weeks. (9) Dysphagia: Code(s): R13.10 - Dysphagia, unspecified Status: Acute Assessment and Plan: Patient reports intermittent sensation of food stuck in her throat that quickly resolves with swallowing liquids. Has been going on for quite some time. Reports occurs more frequently with dry, hard foods. She has not had an EGD in the past and does not wish to have one in the future. We discussed soft, moist foods, chewing thoroughly, taking frequent sips of water between bites, and eating sitting upright.Aspiration precautions in place. DS: Summary Hospital Course Reason for hospitalization: MINGO mendes
== END 2020-07-29 15:09 | disposition home or self-care (01) ==
LOC: ANHED 14:10 → ANH2MED 14:40
PROVIDERS: Family Medicine; Physician Assistant; Admitting Provider Internal Medicine; Emergency Provider Family Medicine; PCP Family Medicine; Visit Provider Family Medicine
DX: C78.7 Secondary malignant neoplasm of liver and intrahepatic bile duct (principal); R53.1 Weakness; E86.0 Dehydration; D72.829 Elevated white blood cell count, unspecified; R74.01 Elevation of levels of liver transaminase levels; E78.5 Hyperlipidemia, unspecified; I10 Essential (primary) hypertension; R13.10 Dysphagia, unspecified; R10.10 Upper abdominal pain, unspecified; R94.31 Abnormal electrocardiogram [ECG] [EKG]; R11.0 Nausea; R91.8 Other nonspecific abnormal finding of lung field; R63.4 Abnormal weight loss; E03.9 Hypothyroidism, unspecified; Z87.891 Personal history of nicotine dependence; Z85.3 Personal history of malignant neoplasm of breast
CPT/HCPCS: 36415; 71046; 80048; 80053; 81001; 82607; 82746; 84439; 84443; 84480; 85025; 85027; 93005; 96361; 96374; 96375; 96376; 97110; 97116; 97161; 97165; 99285; A9270; G0378; J1170; J1885; J2405; J7030

== ENCOUNTER 2020-07-31 08:54 | Observation (INO) | payer MEDICARE, SELFPAY ==
[2020-07-31] VITALS (31 sets, daily range): BP systolic 101–119; BP diastolic 53–92; PULSE 93–110; RESP 15–25; TEMP 36.2–36.8; O2SAT 92–97; BMI 25.4
--- NOTE | ~2020-07-31 | CT_ITS ---
EXAMINATION: CT abdomen pelvis w con DATE: 07/31/2020 11:05 INDICATION: Diarrhea. Weakness. TECHNIQUE: Computed tomography (CT) of the abdomen and pelvis was performed without intravenous contr ast. Automated exposure control and iterative reconstruction technique were employed. Exam dose: 820 .25 mGy-cm total exam DLP. COMPARISON: 06/27/2020 limited abdominal ultrasound examination FINDINGS: There is mild right pleural effusion. There is right lower lobe and middle lobe basilar ate lectasis. Mild discoid atelectasis or scarring at the left lung base. There is hepatomegaly with innumerable hepatic masses scattered throughout the liver consistent with extensive hepatic metastatic disease. The gallbladder is present. No bile duct dilatation. Normal splenic size. No pancreatic mass lesion, calcification or ductal dilatation. Normal morphology of the adrenal glands. Small nonobstructing lower pole left renal calculus. No apparent ureteral calculus or hydroureteronep hrosis on either side. The urinary bladder, uterus and adnexal areas are unremarkable. Diverticulosis of the colon; no CT evidence of diverticulitis. No bowel obstruction, bowel wall thick ening, pneumatosis or intraperitoneal free air is detected. There is mild ascites. There is extensive calcification of the abdominal aorta but no aneurysm. No intraperitoneal or retrop eritoneal or pelvic mass lesion or lymphadenopathy is noted. Extensive degenerative changes of the thoracic and lumbar spine. No suspicious osteolytic or osteoblastic lesions for metastasis are noted. IMPRESSION: Hepatomegaly with extensive hepatic metastases Small nonobstructing lower pole left renal calculus Mild ascites Diverticulosis of the colon Reviewed, dictated and finalized at [facility]. Reviewed, dictated and finalized at [facility]. ECTIONAL SERGEANT
--- NOTE | ~2020-07-31 | XR_ITS ---
XR chest 1V DATE: 07/31/2020 09:40 INDICATION: Shortness of breath. Recent diagnosis of liver cancer. TECHNIQUE: Portable AP chest on 07/31/2020 at 0934 hours COMPARISON: 07/26/2020 AP and lateral chest FINDINGS: There is prominent elevation the right hemidiaphragm. Mild atelectasis or infiltrate at the right lung base, stable since 07/22/2020. The lungs otherwise appear clear. Cardiomegaly. Aortic ectasia and mild tortuosity. No hilar or mediastinal enlargement is evident. No pleural effusion or pulmonary vascular congestion or pneumothorax. Scoliosis and degenerative spurring of the thoracic spine. IMPRESSION: Elevated right diaphragm and right basilar mild infiltrate or atelectasis, stable since 09/25/2019 Reviewed, dictated and finalized at [facility]. HEALTH COORDINATOR IMPRESSION: Elevated right diaphragm and right basilar mild infiltrate or atele ctasis, stable since 07/26/2020
--- NOTE | 2020-07-31 09:13 | ED.NAVMDI ---
HPI - Nausea/Vomiting/Diarrhea General Chief complaint: Nausea/Vomiting/Diarrhea Stated complaint: nausea/diarrhea x 1.5 days Time Seen by Provider: 07/31/20 09:13 History of Present Illness HPI Narrative: 79 yo female presents from home for diarrhea and nausea. She was just discharged from the hospital 2 days ago. Since getitng home she reports that she has developed Severe diarrhea. She has been incontinent of stool and says that it is nearly continuous. This has been associated progressive weakness, she can barely sit up on her own at this point. Additionally she has significant ankle edema, which she says is new. Aslo SHER. She was recently diagnosed with liver cancer. She is being seen by Dr. Ramirez. Related Data Home Medications Medication Instructions Recorded Confirmed lisinopril 5 mg PO DAILY 07/11/20 07/26/20 simvastatin 20 mg PO HS 07/11/20 07/26/20 Allergies Allergy/AdvReac Type Severity Reaction Status Date / Time No Known Allergies Allergy Verified 07/31/20 14:58 Review of Systems Review of Systems: All systems reviewed & are unremarkable except as noted in HPI and below Constitutional: Constitutional: Reports fatigue, Denies fever(s) and Reports weakness Cardiovascular: Cardiovascular: Denies chest pain Respiratory: Respiratory: Reports dyspnea Gastrointestinal: Gastrointestinal: Reports diarrhea, Reports nausea and Denies vomiting Genitourinary: Genitourinary: Denies hematuria and Denies dysuria Neurologic: Reports dizziness and Reports weakness PMFSH Past Medical History Medical History (Updated 07/31/20 @ 18:12 by Kvng Moore MD) Essential hypertension Hyperlipidemia Surgical History Surgical History (Updated 07/27/20 @ 17:42 by Ramon Ramirez MD) H/O oophorectomy History of lumpectomy of right breast Family History Family History Father Acute eosinophilic leukemia Social History Social History Smoking status: Former smoker Additional smoking assessment comments: pt was a social smoker Alcohol intake: never Substance use: never Substance use type: does not use Gender identity (if verbalized by the patient): Female Spiritual care concerns: No Exam Const: General: no acute distress, alert and ill appearing Orientation/consciousness: patient oriented x3 HENMT: Head: normal to inspection Resp: Auscultation: crackles bilateral at the base Cardio: Rate: tachycardic Rhythm: regular rhythm GI: Inspection: distended GI Palp: Yes Soft to palpation and No Tenderness to palpation present (GI) Skin: General skin exam: normal color Neuro: General: patient oriented x3, moves all extremities, no focal motor deficits and CN's II-XI intact bilaterally Speech: normal speech Extrem: General: edema (Severe foot and ankle edema bilaterally. Cool to touch. ) Course Vital Signs Vital signs: Vital Signs Temperature 36.4 C 07/31/20 09:03 Pulse Rate 104 H 07/31/20 09:03 Respiratory Rate 20 07/31/20 09:03 Blood Pressure 103/53 L 07/31/20 09:03 Pulse Oximetry 96 07/31/20 09:03 Temperature 36.2 C L 07/31/20 14:56 Pulse Rate 93 07/31/20 14:56 Respiratory Rate 18 07/31/20 14:56 Blood Pressure 103/56 L 07/31/20 14:56 Pulse Oximetry 95 07/31/20 14:56 MDM - Nausea/Vomiting/Diarrhea MDM Narrative Medical decision making narrative: WBC continues to climb. Nothing acute on CT. UA shows possible infection. Given 1 dose zosyn. Will hold pending culture. C. diff labs ordered. Will gentle hydrate Medical Records Attestation: I reviewed the patient's medical records. Lab Data Attestation: I reviewed the patient's lab results. Result diagrams: 07/31/20 09:41 07/31/20 09:41 Labs: Lab Results 07/31/20 07/31/20 07/31/20 Range/Units 09:41 09:41 09:52 WBC 23.6 H (4.5-10.
[2020-07-31] MEDS: LOPERAMIDE HCL 2 MG CAPSULE 4 MG PO (09:41)
[2020-07-31 10:14] LABS: Basophils Absolute Auto 0.1 K/mm3 (0.0-0.1); Basophils Percent Auto 0.3 % (0.2-1.2); Eosinophils Absolute Auto 0.1 K/mm3 (0-0.3); Eosinophils Percent Auto 0.2 % (0-4.4); Hematocrit 39.1 % (37.0-47.0); Hemoglobin 13.2 g/dL (12.0-15.0); Immature Granulocyte Absolute 0.18 K/mm3 (0.00-0.031); Immature Granulocyte Percent A 0.8 % (0-0.5); Lymphocytes Absolute Auto 1.49 K/mm3 (0.9-3.2); Lymphocytes Percent Auto 6.3 % (18.3-44.2); Mean Corpuscular HGB Conc 33.8 g/dl (32-36); Mean Corpuscular Hemoglobin 25.4 pg (26-34); Mean Corpuscular Volume 75.2 fl (80-100); Monocytes Absolute Auto 1.3 K/mm3 (0.1-0.6); Monocytes Percent Auto 5.5 % (2.6-8.5); Neutrophils Absolute Auto 20.5 K/mm3 (1.3-6.7); Neutrophils Percent Auto 86.9 % (45.5-73.1); Platelet Count Result 339 k/mm3 (150-375); Red Cell Distribution Width 16.1 % (11.5-14.5); White Blood Count 23.6 K/mm3 (4.5-10.0)
[2020-07-31 10:20] LABS: Add Urine Microscopic? YES; Amorphous Sediment Urine Few; Appearance Urine Clear (Clear); Bacteria Urine 2+ /hpf; Bilirubin Urine Negative (Negative); Blood Urine Negative (Negative); Color Urine Amber (Yellow); Glucose Urine UA Negative (Negative); Hyaline Casts Urine 30-49 /lpf; Ketones Urine Trace mg/dL (Negative); Leukocyte Esterase Ur Negative LEU/UL (Negative); Mucus Urine Rare /lpf; Nitrate Urine Positive (Negative); Protein Urine 1+ mg/dL (Negative); RBC Urine 0-2 /hpf (0-2); Specific Grav Ur 1.024 (1.001-1.035); Squamous Epithelial Cell Urine Rare /hpf (Few); Urobilinogen Urine Negative mg/dL (<2.0)
[2020-07-31 10:27] LABS: Alanine Aminotransferase 54 U/L (4-35); Alkaline Phosphatase 593 U/L (38-126); Anion Gap 11 mmol/L (8-16); Aspartate Amino Transferase 180 U/L (14-36); Bilirubin,Total 1.7 mg/dL (0.2-1.3); Blood Urea Nitrogen 17 mg/dL (7-17); Calcium 9.3 mg/dL (8.4-10.2); Carbon Dioxide 21 mmol/L (22-30); Chloride 102 mmol/L (98-107); Estimated CRCL calculation 56 ml/min; Estimated Glomerular Filt Rate > 60; Glucose 87 mg/dL (65-105); Lipase 195 U/L (23-300); Potassium 4.7 mmol/L (3.4-5.0); Sodium 134 mmol/L (137-145)
[2020-07-31] MEDS: SODIUM CHLORIDE 0.9% IV 500 ML 999 ML IV CONT (12:16)
--- NOTE | 2020-07-31 13:50 | ADMGEN ---
This patient, Stephanie Wilson, was admitted to 2 Medical Room 241-. Patient/family oriented to hospital policies and general routines including ID bracelet, bed and alarms, visiting hours, pain management, procedures, bathroom and other care routines, personal items, smoking policy, room service/diet, and visiting hours. Information on how to activate the Rapid Response Team has been discussed. Patient/Family are encouraged to report perceived risks to care and to ask questions if they do not understand what they are told or what they should do.
[2020-07-31] MEDS: LACTATED RINGERS 1,000 ML 125 ML IV CONT (14:41)
--- NOTE | 2020-07-31 16:30 | PM.IMHP ---
H&P: HPI History of Present Illness Date/Time: 07/31/20 16:30 Chief complaint: Nausea, diarrhea, weakness. Narrative: Stephanie Wilson is a pleasant 79-year-old female with remote history of breast cancer, hypertension, and hyperlipidemia who presented to the emergency department earlier today with complaints of weakness, nausea, and diarrhea. 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 She was to have a PET scan on 07/26/2020 however was so weak at that time that she was instead referred to the emergency department and was admitted to the hospital for hydration. She was discharged home on 07/29 and she has been gotten progressively more weak since that time. She has pretty persistent nausea, abdominal bloating, right upper quadrant aching, and progressive weakness. Due to her poor oral intake she believes that she is quite dehydrated as she has been getting extremely fatigued and lightheaded with minimal exertion. She also notes diarrhea over the last 36 hours or so, reporting innumerable bouts of loose stools, some of which she is incontinent. Her urine output has been diminished and she also describes dark brown colored urine. She has not had fever, chills, or sweats. No cold or flu symptoms. No chest pain, pleuritic pain, or shortness of breath. She denies cough. No significant dysuria, urinary hesitancy, or frequency. Review of Systems Review of Systems: Narrative: Twelve systems were reviewed with pertinent positives and negatives as per HPI. Except as documented, all other systems were reviewed and are negative. ON LICENSE OF [facility] Past Medical History Medical History (Updated 07/31/20 @ 22:00 by Carolyn Medina PA-C) Essential hypertension Gastroesophageal reflux disease History of colon polyps History of right breast cancer (~1991) Status post lumpectomy and radiation therapy. 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 Osteoarthritis Osteoporosis Surgical History Surgical History (Updated 07/31/20 @ 21:54 by Carolyn Medina PA-C) History of appendectomy History of lumpectomy of right breast (~1991) History of oophorectomy Family History Family History Father Acute eosinophilic leukemia Social History Social History (Updated 07/31/20 @ 21:56 by Carolyn Medina PA-C) Social History: Mrs. Wilson lives in [place] with her dog and cat. She raised 3 children and I believe they will live nearby. She smoked socially many years ago. No alcohol or illicit substance abuse. She designates her son Alexandr Wilson as her surrogate decision maker and she wishes to be a do not resuscitate. Spiritual care concerns: No Meds Home Medications and Allergies Home Medications Medication Instructions Recorded Confirmed Type lisinopril 5 mg PO DAILY 07/11/20 07/26/20 History simvastatin 20 mg PO HS 07/11/20 07/26/20 History hydrocodone-acetaminophen 1 tab PO Q4-6H PRN #10 tablet 07/29/20 Rx ondansetron HCl [Zofran] 4 mg PO Q6H PRN #20 tablet 07/29/20 07/31/20 Rx Allergies Allergy/AdvReac Type Severity Reaction Status Date / Time No Known Allergies Allergy Verified 07/31/20 14:58 Vital Signs Vital Signs - 24 hr 07/31/20 09:03 07/31/20 09:22 07/31/20 09:30 Temperature 97.6 F Pulse Rate 104 H 102 H 102 H Respiratory Rate 20 22 H 22 H Blood Pressure 103/53 L Pulse Oximetry 96 95 07/31/20 09:31 07/31/20 09:43 07/31/20 09:44 Temperature Pulse Rate 106 H 101 H 99 Respiratory Rate 24 H 17 Blood Pressure 112/92 H 117/68 117/68 Pulse Oximetry 97 97 07/31/20 09:45 07/31/20 09:46 07/31/20 09:47 Temperature Pulse Rate 103 H 110 H 105 H Respiratory Rate 25 H 23 H 21 H Blo
[2020-07-31] MEDS: oxyCODONE HCL (*CRX) 2.5 MG TAB IR PO (19:05)
--- NOTE | 2020-07-31 20:03 | PC.NURSE ---
I left a message for Carolyn Medina that the patient wishes to be DNR. Carolyn did not answer, but I will pass this along to nightshift to reassess.
[2020-07-31] MEDS: ONDANSETRON INJ 4 MG/2 ML VIAL IV PUSH (21:06)
[2020-07-31] MEDS: LACTATED RINGERS 1,000 ML 75 ML IV CONT (22:39)
[2020-08-01 06:00] VITALS: BP 111/58; PULSE 100; RESP 18; TEMP 37.1; O2SAT 92
[2020-08-01] MEDS: oxyCODONE HCL (*CRX) 2.5 MG TAB IR PO ×3 (08:53→20:40)
[2020-08-01] MEDS: ONDANSETRON INJ 4 MG/2 ML VIAL IV PUSH ×2 (08:53→13:39)
--- NOTE | 2020-08-01 11:05 | PC.NURSE ---
Irma Granger SHOE CASER here to see patient. Discussed uncontrolled pain with Irma. Informed her that patient is rating abdominal pain 7/10 after receiving Oxycodone IR.
--- NOTE | 2020-08-01 11:46 | PM.IMPN ---
Progress Note: A&P Assessment and Plan (1) Dehydration: Code(s): E86.0 - Dehydration Status: Acute Assessment and Plan: supportive care given dehydration from poor oral intake and diarrhea. now discontinued IV fluid rehydration due to increasing foot/ankle edema continue monitoring of volume status and I/Os. continue to encourage slow and steady oral re-hydration and oral nutrition in liquid or full liquid or soft form (2) Generalized weakness: Code(s): R53.1 - Weakness Status: Acute Assessment and Plan: She has decided not to go through with her PET scan and instead would like to meet with Hospice she and her family have chosen [facility] out of bed at her will with assistance for safety rehydrated and encourage nutrition intake as possible, but it will be very difficult with the Adenocarcinoma. using bed pans as needed. (3) Metastatic adenocarcinoma: Onset Date: ~07/13/20 Code(s): C79.9 - Secondary malignant neoplasm of unspecified site Status: Acute Assessment and Plan: She has decided not to go through with her PET scan and instead would like to meet with Hospice she and her family have chosen [facility] Analgesics (lidocaine, tramadol, and oxycodone) have been ordered for pain control. (4) Leukocytosis: Qualifiers: Leukocytosis type: unspecified Qualified Code(s): D72.829 - Elevated white blood cell count, unspecified Code(s): D72.829 - Elevated white blood cell count, unspecified Status: Acute Assessment and Plan: appears to have a UTI, UA + Urinalysis does show some white blood cells, 2+ bacteria, and is positive for nitrates thus will continue IV antibiotics, pending urine culture. continue IV zosyn may have also been reactive to diarrhea Imodium / Senna / Colace available as needed not been on any recent antibiotics and I doubt that her diarrhea is infectious, no diarrhea since admission, no stool ouptut today, C diff less likely no fevers urine and blood cultures pending WBC 15, increased to 23.9 today. (5) Essential hypertension: Code(s): I10 - Essential (primary) hypertension Status: Chronic Assessment and Plan: Chronic. well controlled at this time, without home meds avoid over medicating at this time, due to risks and likely to remain dehydrated/hypovolemic due to prognosis and condition. BPs 101/62, HR 90s. Regular rhythm. (6) Hyperlipidemia: Qualifiers: Hyperlipidemia type: unspecified Qualified Code(s): E78.5 - Hyperlipidemia, unspecified Code(s): E78.5 - Hyperlipidemia, unspecified Status: Chronic Assessment and Plan: Chronic. well controlled at this time, without home meds patient and family choosing [facility]ospice [facility] at this time. Subjective Date/time seen: 08/01/20 11:46 Stephanie was feeling better when I went to see her this morning. She was on a bedpan at the time. Her abdomen is quite rounded and distended. She has not had any diarrhea or stool output since she was admitted yesterday. Per nursing report from family she was having diarrhea at home prior to admission. She is being treated for abdominal pain specially the right upper quadrant, she states that it does not radiate to her back. We are using scheduled lidocaine patches, p.r.n. tramadol, as well as p.r.n. oxycodone. I have ordered p.r.n. stool softeners and laxatives, anticipating possible constipation with narcotics. She has been chewing on ice chips, and was able to get in a cup of broth this morning for breakfast. She has a very pragmatic patient and seems to have come with to terms with her prognosis. She stated that she and her family have chosen [facility] hospice to be started at discharge, so she can go home. She had a PET scan that was to be completed last week, but she was too uncomfortable to even get that done; and at this point she just wan
[2020-08-01] MEDS: LIDOCAINE 5% PATCH 2 PATCH TRANSDERM (13:40)
[2020-08-01 14:00] VITALS: BP 103/50; PULSE 96; RESP 15; TEMP 36.4; O2SAT 94
--- NOTE | 2020-08-01 18:57 | PC.NURSE ---
Discussed SITA hose with patient and patient does not want SITA hose and SCDs. Patient requested to have SCDs only.
[2020-08-01 20:00] VITALS: BP 100/57; PULSE 106; RESP 18; TEMP 36.4; O2SAT 93
[2020-08-02 04:00] VITALS: BP 106/57; PULSE 98; RESP 20; TEMP 36.6; O2SAT 92
[2020-08-02] MEDS: oxyCODONE HCL (*CRX) 2.5 MG TAB IR PO ×2 (05:37→12:40)
[2020-08-02] MEDS: SODIUM CHLORIDE 0.9% IV 1,000 ML 999 ML IV CONT (06:07)
[2020-08-02] MEDS: SODIUM CHLORIDE 0.9% IV 1,000 ML 85 ML IV CONT (07:10)
[2020-08-02] MEDS: LIDOCAINE 5% PATCH 2 PATCH TRANSDERM (10:19)
[2020-08-02] MEDS: ONDANSETRON INJ 4 MG/2 ML VIAL IV PUSH (10:23)
--- NOTE | 2020-08-02 11:16 | PM.DS ---
DS: Admitting Diagnosis Admitting Diagnosis Admitting Diagnosis: Nausea, diarrhea, weakness. DS: Discharge Diagnosis Discharge Diagnosis (1) Dehydration: Code(s): E86.0 - Dehydration Status: Acute Assessment and Plan: Supportive care given dehydration from poor oral intake and diarrhea. Patient to be discharged today home with [facility]. (2) Generalized weakness: Code(s): R53.1 - Weakness Status: Acute Assessment and Plan: She has decided not to go through with her PET scan and has signed consents for Hospice as above. (3) Metastatic adenocarcinoma: Onset Date: ~07/13/20 Code(s): C79.9 - Secondary malignant neoplasm of unspecified site Status: Acute Assessment and Plan: She has decided not to go through with her PET scan and has signed consents for Hospice as above. (4) Leukocytosis: Qualifiers: Leukocytosis type: unspecified Qualified Code(s): D72.829 - Elevated white blood cell count, unspecified Code(s): D72.829 - Elevated white blood cell count, unspecified Status: Acute Assessment and Plan: Possible UTI with abnormal UA. UCx growing E. coli sensitive to Rocephin. Rocephin x 2 days; will discharge home on 3 more days with [facility] to further manage. (5) Essential hypertension: Code(s): I10 - Essential (primary) hypertension Status: Chronic Assessment and Plan: BP soft at 100s sys. Further care per [facility] (6) Hyperlipidemia: Qualifiers: Hyperlipidemia type: unspecified Qualified Code(s): E78.5 - Hyperlipidemia, unspecified Code(s): E78.5 - Hyperlipidemia, unspecified Status: Chronic Assessment and Plan: Chronic. DS: Summary Hospital Course Reason for hospitalization: Nausea, diarrhea, weakness. Dehydration. Metastatic Adenocarcinoma Hospital Course: Date of arrival: 07/31/20 Date of discharge: 08/02/20 Patient is a 79 yo F with remote history of breast cancer, hypertension, and hyperlipidemia who presented to the emergency department on 07/31 with complaints of weakness, nausea, and diarrhea. 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 She was to have a PET scan on 07/26/2020 however, at that time she was so weak she was instead referred to ED and was admitted to the hospital at that time for hydration; discharged on 07/29. She then became progressively more weak since that time with persistent nausea, bloating, RUQ aching and progressive weakness, prompting her to present to the ED. While in the ED, she was found to have evidence of dehydration and UA suspicious for UTI. Leukocytosis appeared to have worsened since her previous admission. She was started on Zosyn and admitted under this setting. Please see H&P for further details. Patient was admitted to the hospitalist service for further management/treatment. Patient was switched to IV rocephin once admitted. Patient also decided to speak with CC to discuss hospice/comfort care. Decision was made to proceed with [facility] by herself and family. She wished to treat her UTI for the time being. Plan was for her to be discharged home with hospice care. Patient and family were agreeable and comfortable with plan for discharge. Patient hemodynamically stable and in improved condition for discharge on 08/02. Further care was to be managed by [facility] Status at Discharge Overall status at discharge: patient is not back to [facility]
[2020-08-02] MEDS: CEFDINIR 300 MG CAPSULE PO (12:40)
[2020-08-02] MEDS: SENNA/DOCUSATE SODIUM TABLET 1 TAB PO (12:41)
[2020-08-02 14:00] VITALS: BP 96/56; PULSE 97; RESP 18; TEMP 36.3; O2SAT 93
== END 2020-08-02 14:45 | disposition hospice, home (50) ==
LOC: ANHED 09:24 → ANH2MED 13:04
PROVIDERS: Admitting Provider Internal Medicine; Emergency Provider Emergency Medicine; PCP Family Medicine; Visit Provider Physician Assistant
DX: E86.0 Dehydration (principal); R53.1 Weakness; C78.7 Secondary malignant neoplasm of liver and intrahepatic bile duct; D72.829 Elevated white blood cell count, unspecified; R11.2 Nausea with vomiting, unspecified; R19.7 Diarrhea, unspecified; I10 Essential (primary) hypertension; E78.5 Hyperlipidemia, unspecified; R15.9 Full incontinence of feces; R60.0 Localized edema; N39.0 Urinary tract infection, site not specified; R91.8 Other nonspecific abnormal finding of lung field; N20.0 Calculus of kidney; K57.90 Diverticulosis of intestine, part unspecified, without perforation or abscess without bleeding; K21.9 Gastro-esophageal reflux disease without esophagitis; M81.0 Age-related osteoporosis without current pathological fracture; Z85.3 Personal history of malignant neoplasm of breast; Z87.891 Personal history of nicotine dependence
CPT/HCPCS: 36415; 51701; 71045; 74177; 80053; 81001; 83690; 85025; 87040; 87077; 87086; 87088; 87186; 96361; 96365; 96366; 96367; 96375; 96376; 99285; A9270; G0378; J0696; J2405; J2543; J7030; J7040; J7120; Q9967